=== PATIENT | male | born 1980 | race Caucasian/White ===

== ENCOUNTER 2016-04-26 08:57 | Emergency (ER) | payer OTHER ==
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
[2016-04-26 10:08] VITALS: RESP 16
[2016-04-26] MEDS ORDERED: IBUPROFEN 600 MG TAB PO ONE (10:12)
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
[2016-04-26 10:57] VITALS: BP 120/75; PULSE 82; TEMP 96.8; O2SAT 95
== END 2016-04-26 11:45 | disposition home or self-care (01) ==
DX: S16.1XXA Strain of muscle, fascia and tendon at neck level, initial encounter (principal); F17.200 Nicotine dependence, unspecified, uncomplicated; V49.40XA Driver injured in collision with unspecified motor vehicles in traffic accident, initial encounter; Y92.410 Unspecified street and highway as the place of occurrence of the external cause; Y99.8 Other external cause status; Y93.89 Activity, other specified